=== PATIENT | female | born 1965 | race Caucasian/White ===

== ENCOUNTER 2019-11-08 08:07 | Inpatient (IN) ==
[2019-11-08] MEDS ORDERED: CeFAZolin Syr 2,000MG/20 ML 2,000 MG/20 ML SYRINGE IVPB ONE (08:24)
[2019-11-08] MEDS ORDERED: Ringers Solution, Lactated 1,000 ML IVC SCH ×2 (08:30→13:30)
[2019-11-08] MEDS ORDERED: *HR* Promethazine 25 MG/ML VIAL IVP PRN ×2 (08:33)
[2019-11-08] MEDS ORDERED: *HR* HYDROmorphone (PF) 1 MG/ML SYRINGE IVP PRN (08:33)
[2019-11-08] MEDS ORDERED: *HR* Labetalol 20 MG/4 ML SYRINGE IVP PRN (08:33)
[2019-11-08] MEDS ORDERED: *HR* Succinylcholine 200 MG/10 ML VIAL IVP ONE (09:29)
[2019-11-08] MEDS ORDERED: Lidocaine -MPF 4% 5 ML AMPUL ONE (09:29)
[2019-11-08] MEDS ORDERED: Lidocaine -MPF 2% 2 ML VIAL ONE (09:29)
[2019-11-08] MEDS ORDERED: *HR* Propofol 200 MG/20 ML VIAL IVP ONE (09:29)
[2019-11-08] MEDS ORDERED: Vancomycin 1,000 MG VIAL ONE (09:38)
[2019-11-08] MEDS ORDERED: Ethanol\\Acetic Acid\\Na Ace\\Ben 1,000 ML IRRIG.SOLN IR ONE (09:39)
[2019-11-08] MEDS ORDERED: *HR* Midazolam HCl 2 MG/2 ML VIAL ONE (09:40)
[2019-11-08] MEDS ORDERED: Ropivacaine/PF 0.5% 30 ML VIAL ONE (09:41)
[2019-11-08] MEDS ORDERED: Dexamethasone 4 MG/ML VIAL ONE (10:27)
[2019-11-08] MEDS ORDERED: EPHEDrine 50 MG/ML VIAL ONE (10:54)
[2019-11-08] MEDS ORDERED: Dextrose Gel 15 GM/37.5 ML TUBE PO PRN ×2 (13:30)
[2019-11-08] MEDS ORDERED: *HR* Dextrose 50 % in Water (Vial) 50 ML VIAL IVP PRN (13:30)
[2019-11-08] MEDS ORDERED: Ondansetron 4 MG/2 ML VIAL IVP PRN (13:30)
[2019-11-08] MEDS ORDERED: Sennosides 8.6 MG TABLET PO PRN (13:30)
[2019-11-08] MEDS ORDERED: MOM Conc 10 ML UD.LIQ PO PRN (13:30)
[2019-11-08] MEDS ORDERED: D5% in Water 1,000 ML IVC PRN (13:30)
[2019-11-08 13:42] LABS: Hematocrit 38.7 % (35.3-44.9); Hemoglobin 12.6 g/dL (11.5-15.4)
[2019-11-08] MEDS: *HR* OxyCODONE Immed Rel 5 MG TABLET PO PRN ×2 (13:51→18:58)
[2019-11-08] MEDS ORDERED: *HR* Enoxaparin 30 MG/0.3 ML SYRINGE SQ SCH (18:00)
[2019-11-08] MEDS: CeFAZolin 2 GM/120 ML BAG IVPB SCH (18:37)
[2019-11-08] MEDS: diazePAM 5 MG TABLET PO SCH ×2 (18:39→20:27)
[2019-11-08] MEDS: *HR* Enoxaparin 30 MG/0.3 ML SYRINGE SQ SCH (18:39)
[2019-11-08] MEDS: Insulin LISPRO 300 UNITS/3 ML VIAL SQ SCH ×2 (19:07→20:22)
[2019-11-08] MEDS: Albuterol 2.5 MG/3 ML NEBULIZER IH SCH ×3 (19:55→23:59)
[2019-11-08] MEDS: haloperidoL 1 MG TABLET PO SCH (20:27)
[2019-11-08] MEDS: carvediloL 6.25 MG TABLET PO SCH (20:27)
[2019-11-08] MEDS ORDERED: Insulin LISPRO 300 UNITS/3 ML VIAL SQ SCH (21:00)
[2019-11-08] MEDS ORDERED: Fenofibrate 54 MG TABLET PO SCH (21:00)
[2019-11-08] MEDS ORDERED: rOPINIRole 0.25 MG TABLET PO SCH (21:00)
[2019-11-08] MEDS: *HR* OxyCODONE/APAP 5/325 TABLET PO PRN (22:22)
[2019-11-09] MEDS: CeFAZolin 2 GM/120 ML BAG IVPB SCH (01:55)
[2019-11-09] MEDS: *HR* OxyCODONE Immed Rel 5 MG TABLET PO PRN ×3 (02:24→11:59)
[2019-11-09] MEDS: Albuterol 2.5 MG/3 ML NEBULIZER IH SCH ×3 (04:32→11:31)
[2019-11-09] MEDS: *HR* Enoxaparin 30 MG/0.3 ML SYRINGE SQ SCH (05:05)
[2019-11-09] MEDS: *HR* OxyCODONE/APAP 5/325 TABLET PO PRN (05:05)
[2019-11-09 06:50] LABS: Hematocrit 36.2 % (35.3-44.9); Hemoglobin 11.8 g/dL (11.5-15.4)
[2019-11-09 07:02] LABS: BUN/Creatinine Ratio 14 (6-26); Blood Urea Nitrogen 12 mg/dL (6-20); Calcium 9.3 mg/dL (8.6-10.3); Carbon Dioxide 27 mEq/L (23-29); Chloride 104 mEq/L (98-107); Glucose 166 mg/dL (70-105); Osmolality,Calculated 294 (280-300); Potassium 4.2 mEq/L (3.5-5.1); Sodium 140 mEq/L (136-145); eGFR For African Americans > 60 (> 60); eGFR For Non-African Americans > 60 (> 60)
[2019-11-09] MEDS: Insulin LISPRO 300 UNITS/3 ML VIAL SQ SCH ×2 (07:34→11:57)
[2019-11-09] MEDS: diazePAM 5 MG TABLET PO SCH (07:52)
[2019-11-09] MEDS: carvediloL 6.25 MG TABLET PO SCH (07:52)
[2019-11-09] MEDS: haloperidoL 1 MG TABLET PO SCH (07:52)
[2019-11-09 10:40] VITALS: BP 119/71
== END 2019-11-09 14:15 | disposition home health service (06) | DRG 483 ==
LOC: SAMDAY 08:07 → 3NENU 13:14
PROVIDERS: ADMIT Orthopaedic Surgery; ATTEND Orthopaedic Surgery